=== PATIENT | female | born 1970 | race Caucasian/White ===

== ENCOUNTER 2023-09-20 12:12 | Outpatient (AMB) | payer OTHER, SELFPAY ==
--- NOTE | 2023-09-20 12:20 | AM.OFFWIN_ITS ---
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 Patient Tobacco Use Status: Never used Tobacco Allergies ciprofloxacin [From Cipro] Adverse Reaction (Intermediate, Verified 09/20/23 12:23) Unknown Medication List - Last Reconciled 09/20/23 by Lata Haskins PA-C albuterol sulfate 90 mcg/actuation inhalation aspirin 81 mg PO DAILY cetirizine (Zyrtec) 10 mg PO DAILY PRN ipratropium bromide intranasal Lactobacillus rhamnosus GG (Culturelle) 1 cap PO DAILY omeprazole 40 mg PO DAILY paroxetine HCl (Paxil) 10 mg PO DAILY tiotropium bromide 1.25 mcg/actuation (Spiriva Respimat) 2 puffs inhalation DAILY Do you need a note to return to daycare/school/sports/work: No HPI HPI Comments History of Present Illness Details Patient is a 53 yo F who has hx of Crohns and asthma who presents with R sided back pain post cough Hx asthma tht has been worse but progressive x 1 month. She sees Mukherjee at [facility]. Taking Albuterol, Spiriva, Zyrtec, Singuliar, Iprotridium bromide. 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 She denies SOB currently aside from when she gets a sharp pain in back, She coughed last ight very hard and had a sharp pain in her back. Has been taking Aleve this am to help without relief. Had topical CBD/Biofreeze Lotion which helped over the last 2 days Pain occurs constant but sharp pain with movement and cough Denies CP, SOB or palpitations No abdominal pain, nausea or vomiting. She admits to pain like this in past. [facility] Social History Patient Tobacco Use Status: Never used Tobacco Review of Systems Const Denies chills and Denies fever(s) ENT Denies mouth pain, Denies nasal congestion, Denies nasal discharge, Denies post nasal drip, Denies sinus pressure and Denies sore throat Card Denies chest pain at rest, Denies chest pain with activity, Denies rapid heart rate, Denies palpitations and Denies dyspnea Resp Reports cough, Reports pain with cough and Denies dyspnea GI Details: hx Crohns Denies abdominal pain, Denies constipation, Denies diarrhea and Denies vomiting Musc Denies abnormal gait, Reports back pain and Reports arthralgias (chronic R shoulder pain) Neuro Denies Abnormal speech present and Denies abnormal gait Psych Reports no additional complaints Endo Denies palpitations Aller/Immun Reports no additional complaints Physical Exam Vital Signs: Last Vital Signs Temp 97.8 F 09/20/23 12:24 Pulse 81 09/20/23 12:24 BP 110/70 09/20/23 12:24 Pulse Ox 98 09/20/23 12:24 Oxygen Delivery Method Room Air 09/20/23 12:24 BMI result Body Mass Index 29.4 General: non-toxic appearing. Speaking full sentences in no respiratory distress Skin: Warm dry throughout. No posterior back or flank edema, erythema or ecchymosis Eye: PERRL HENT: Airway patent. Uvula midline. No pharyngeal erythema or edema Respiratory: No tachypnea. CTA bilaterally without wheeze, rales or rhonchi or decreased sound Cardiac: RRR Abdominal: BS present. Non-tender MSK: No midline spinal tenderness. + tenderness to palpation R posterior paravertebral muscles. Neurology: Patient is alert. Speech clear. No aphasia or facial droop Psych: Normal mood and affect Neuro Speech: No Abnormal speech present Assessment & Plan Assessment & Plan (1) Muscle strain: Code(s): T14.8XXA - Other injury of unspecified body region, initial encounter (2) Cough: Code(s): R05.9 - Cough, unspecified Qualifiers: Cough type: subacute Qualified Code(s): R05.2 - Subacute cough Plan Patient seen and evaluated. She has reproducible right paravertebral muscle tenderness to palpation. Patient states due to history of asthma and follow-up with her teller coordinator, she would like to obtain a chest x-ray to rule out any rib fractures. differential: R Rib fx, back/rib pain R sided, muscle strain, costochondritis, pneumothorax, PNA, URI. Patient's oxygen is stable at 98% on room air and lungs are clear to auscultation without decreased breath sounds. Chest x-ray with right-sided ribs ordered and reviewed by myself as negative. as of 2:20pm [facility] was called and xray is stat but has not been interpreted yet. We discussed continuing topical CBD lotion as patient feels this is helping. We also discussed starting an oral muscle relaxant for discomfort. She is aware that muscle relaxing can cause lethargy, no alcohol or driving or operating heavy machinery under influence. Advised the patient continue her at-home breathing treatment in follow-up with her teller coordinator. If she is to develop chest pain or shortness of breath, go to the emergency department. All questions answered and patient gave verbal understanding. Daughter present as well. Orders: Orders XR ribs RT min 3V w CXR1V 09/20/23 R07.81 - Pleurodynia Medications: New methocarbamol 750 mg PO TID 5 days PRN 14 tabs 0RF muscle pain R07.81 - Pleurodynia Coding Level of Care Code New Pt Level 3 (61977) Diagnoses Muscle strain T14.8XXA Subacute cough R05.2 Cough type: subacute
[2023-09-20 12:24] VITALS: BP 110/70; PULSE 81; TEMP 36.6; O2SAT 98; BMI 29.4
== END 2023-09-20 13:32 | disposition home or self-care (01) ==
PROVIDERS: PCP Internal Medicine Endocrinology, Diabetes & Metabolism; Visit Provider Physician Assistant
DX: T14.8XXA Other injury of unspecified body region, initial encounter (principal); R05.2 Subacute cough
CPT/HCPCS: 99203

== ENCOUNTER 2023-09-20 13:08 | Outpatient (REF) | payer OTHER, SELFPAY ==
--- NOTE | ~2023-09-20 | XR_ITS ---
EXAMINATION: XR RIBS, RIGHT CLINICAL INFORMATION: Pleurodynia COMPARISON: None available. TECHNIQUE: 3 views of the right ribs were obtained. FINDINGS: Lungs are clear. No consolidation, pneumothorax, or pleural effusion. The cardiomediastinal silhouette and pulmonary vasculature are normal. Osseous structures are unremarkable. Ribs are intact. No fractures are identified. XR/XR ribs RT min 3V w CXR1V IMPRESSION: Unremarkable examination.
== END 2023-09-20 13:09 | disposition home or self-care (01) ==
LOC: HO.HMGCX 13:08
PROVIDERS: PCP Internal Medicine; Visit Provider Physician Assistant
DX: R07.81 Pleurodynia (principal)
CPT/HCPCS: 71101